=== PATIENT | male | born 1935 ===

== ENCOUNTER 2021-08-11 05:55 | Day surgery (SDC) | payer OTHER ==
[~2021-08-11 05:55] MED LIST: COZAAR25 MG PO; LIPITOR40 MG PO
[2021-08-11] MEDS ORDERED: ULTRACET PO (08:59)
== END 2021-08-11 10:20 | disposition home or self-care (01) ==
LOC: CIR.AMB 05:55
PROVIDERS: ATTEND Surgery
DX: C21.1 Malignant neoplasm of anal canal (principal); I10 Essential (primary) hypertension; Z20.822 Contact with and (suspected) exposure to COVID-19

== ENCOUNTER 2021-10-28 11:48 | Emergency (ER) | payer OTHER ==
[~2021-10-28] VITALS: Ht 167.6 cm; Wt 61.2 kg
[~2021-10-28 11:48] MED LIST changes: +ULTRACET PO
== END 2021-10-28 14:21 | disposition home or self-care (01) ==
LOC: ER 11:48
DX: T82.898A Other specified complication of vascular prosthetic devices, implants and grafts, initial encounter (principal); Y84.8 Other medical procedures as the cause of abnormal reaction of the patient, or of later complication, without mention of misadventure at the time of the procedure; Y92.013 Bedroom of single-family (private) house as the place of occurrence of the external cause; C21.1 Malignant neoplasm of anal canal; Z20.822 Contact with and (suspected) exposure to COVID-19; I10 Essential (primary) hypertension

== ENCOUNTER 2021-11-14 05:20 | Day surgery (SDC) | payer OTHER ==
[~2021-11-14] VITALS: Ht 167.6 cm; Wt 59.0 kg
[2021-11-14] MEDS ORDERED: ULTRACET PO (10:16)
== END 2021-11-14 13:15 | disposition home or self-care (01) ==
LOC: CIR.AMB 05:20
PROVIDERS: ATTEND Surgery
DX: C21.1 Malignant neoplasm of anal canal (principal); Z20.822 Contact with and (suspected) exposure to COVID-19; I10 Essential (primary) hypertension; E78.5 Hyperlipidemia, unspecified; Z87.891 Personal history of nicotine dependence; Z86.73 Personal history of transient ischemic attack (TIA), and cerebral infarction without residual deficits
CPT/HCPCS: 36561; C1788